=== PATIENT | female | born 2000 | race American Indian/Alaskan Native ===

== ENCOUNTER 2019-10-16 19:41 | Emergency (ER) | payer SELFPAY ==
[2019-10-16 19:55] VITALS: BP 119/67
--- NOTE | 2019-10-16 19:58 | Emergency Department Report ---
Blank Doc - Documentation Documentation: 19-year-old female that presents with right leg abscess. This initial assessment/diagnostic orders/clinical plan/treatment(s) is/are subject to change based on patient's health status, clinical progression and re- assessment by fellow clinical providers in the ED. Further treatment and workup at subsequent clinical providers discretion. Patient/guardians urged not to elope from the ED as their condition may be serious if not clinically assessed and managed. Initial orders include: 1- Patient sent to [facility] for further evaluation and treatment
[2019-10-16] MEDS ORDERED: LIDOCAINE (2%) 20 MG/1 ML VIAL 20 ML MDV INFILTRATI ONE ×2 (22:37→22:41)
[2019-10-16] MEDS ORDERED: CLINDAMYCIN 300 MG CAP PO ONE (23:40)
[2019-10-16] MEDS ORDERED: HYDROcodone/ACETAMINOPHEN 5-325 MG TAB PO ONE (23:40)
--- NOTE | 2019-10-16 23:43 | Emergency Department Report ---
Abscess Boil HPI - HPI Chief Complaint: Skin/Abscess/Foreign Body Stated Complaint: BOIL ON BACK LEG MUSCLE Time Seen by Provider: 10/16/19 19:57 Duration: 2 Days Severity: Mild History: Yes Pain, Yes Insect Bite, No Fever, No Purulent Drainage, No Numbness, No Foreign Body, No Previous History HPI: This is a 19-year-old female with a history of eczema who presents to ED complaining of right calf pain and redness and some swelling for the past couple of days. She denies fevers/chills/nausea vomiting Home Medications: Previous Rx's Medication Instructions Recorded Last Taken Type Clindamycin [Clindamycin CAP] 300 mg PO Q8H #21 cap 10/17/19 Unknown Rx Ibuprofen [Motrin] 800 mg PO Q8HR #30 tab 10/17/19 Unknown Rx Sulfamethoxazole/Trimethoprim 1 each PO BID #20 tablet 10/17/19 Unknown Rx [Bactrim DS TAB] Allergies/Adverse Reactions: Allergies Allergy/AdvReac Type Severity Reaction Status Date / Time seafood Allergy Itching Uncoded 10/16/19 20:02 ED Review of Systems ROS: Stated complaint: BOIL ON BACK LEG MUSCLE Other details as noted in HPI Comment: All other systems reviewed and negative ED Past Medical Hx - Past Medical History Previous Medical History?: Yes Additional medical history: Eczema - Surgical History Past Surgical History?: Yes Additional Surgical History: Bilateral knees - Social History Smoking Status: Current Every Day Smoker Substance Use Type: Marijuana - Medications Home Medications: Home Medications Medication Instructions Recorded Confirmed Last Taken Type Clindamycin [Clindamycin CAP] 300 mg PO Q8H #21 cap 10/17/19 Unknown Rx Ibuprofen [Motrin] 800 mg PO Q8HR #30 tab 10/17/19 Unknown Rx Sulfamethoxazole/Trimethoprim 1 each PO BID #20 tablet 10/17/19 Unknown Rx [Bactrim DS TAB] ED Abscess Boil Physical Exam - Exam General: Vital signs noted. No distress. Alert and acting appropriately. Size: 3 cm Exam: Yes Tenderness, Yes Fluctuance, Yes Normal Neurologic Exam, Yes Normal Circulation, No Surrounding Cellulites/Erythema, No Lymphangitis, No Crepitation, No Heart Murmur I & D Note - I & D Note I & D Note: Patient positioned appropriately, 3cc lidocaine without epinephrine was used as a local anesthetic. #11 blade scalpal used for single incision. Additional local anesthetic injected into surrounding viable tissue prior to blunt dissection of loculated adhesions. Copius drainage of pus. Procedure tolerated without complications. Wound dressed with sterile 4x4 guaze and paper tape. Pt tolerated procedure well. ED Course Vital Signs 10/16/19 19:53 Temperature 98.4 F Pulse Rate 94 H Respiratory 14 Rate Blood Pressure 119/67 O2 Sat by Pulse 100 Oximetry Critical care attestation.: If time is entered above; I have spent that time in minutes in the direct care of this critically ill patient, excluding procedure time. ED Medical Decision Making - Medical Decision Making 19-year-old female presents with simple abscess of right calf,. Patient tolerated procedure well. See I&D note Discussed antibiotic therapy for the next 10 days. Scars follow up with primary care physician. Patient vital signs are stable. She is in no acute distress. Discussed wound check in 3 days ED Disposition Clinical Impression: Calf abscess Disposition: - TO HOME OR SELFCARE Is pt being admited?: No Does the pt Need Aspirin: No Condition: Stable Instructions: Cellulitis (ED), Abscess Incision and Drainage (ED), Abscess (ED) Additional Instructions: Make sure to follow up with the primary care physician as discussed. Take all your medications as you've been prescribed. If you have any worsening symptoms or develop new symptoms please return to ED immediately. Prescriptions: Sulfamethoxazole/Trimethoprim [Bactrim DS TAB] 1 each PO BID #20 tablet Clindamycin [Clindamycin CAP] 300 mg PO Q8H #21 cap Ibuprofen [Motrin] 800 mg PO Q8HR #30 tab Referrals: PRIMARY CARE, [Primary Care Provider] - 3-5 Days [facility] [Outside] - 3-5 Days [facility] [Outside] - 3-5 Days Forms: Accompanied Note, Work/School Release Form(ED) Time of Disposition: 01:13
== END 2019-10-17 01:20 | disposition home or self-care (01) ==
LOC: ED 19:41
DX: L02.415 Cutaneous abscess of right lower limb (principal); F17.200 Nicotine dependence, unspecified, uncomplicated; F12.10 Cannabis abuse, uncomplicated; Z79.899 Other long term (current) drug therapy; Z91.013 Allergy to seafood